=== PATIENT | female | born 1950 | race Two or more races ===

== ENCOUNTER 2020-12-14 00:37 | Inpatient (IN) | payer OTHER ==
[2020-12-14] VITALS (60 sets, daily range): BP systolic 98–157; BP diastolic 36–83
[~2020-12-14] VITALS: Ht 160 cm; Wt 68.0 kg
[2020-12-14] MEDS ORDERED: AMIODARONE HCL (50 MG/ ML) 3 ML VIAL IV ONE ×2 (01:04→02:17)
[2020-12-14] MEDS ORDERED: LORazepam 2MG/ML-1ML VIAL ONE (01:07)
[2020-12-14] MEDS ORDERED: ATROPINE SULFATE 1 MG/1 ML VIAL ONE (01:09)
[2020-12-14] MEDS ORDERED: GLUCAGON HYDROCHLORIDE (RDNA) 1 MG VIAL ONE (01:14)
[2020-12-14 01:17] LABS: Basophils # (auto) 0.1 10 ^3/uL (0-0.2); Basophils % (auto) 0.6 % (0.0-2.0); Eosinophils # (auto) 0.1 10 ^3/uL (0-0.8); Hematocrit 35.7 % (36.0-46.0); Hemoglobin 11.7 g/dL (12.2-16.2); Mean Corpuscular Hemoglobin 26.2 pg (28.0-32.0); Mean Corpuscular Hgb Conc. 32.7 g/dL (32.0-36.0); Mean Corpuscular Volume 80.1 fL (80.0-100.0); Monocytes # (auto) 0.8 10 ^3/uL (0-1.3); Monocytes % (auto) 6.8 % (0.0-12.0); Neutrophils % (auto) 83.6 % (37.0-80.0); Nucleated Red Blood Cells % 0.1 %; Red Blood Cells 4.46 10^6/uL (4.0-5.20); Red Cell Distribution Width 15.4 % (11.8-14.3)
[2020-12-14 01:35] LABS: Alanine Aminotransferase 33 U/L (13-56); Albumin 3.4 g/dL (3.4-5.0); Anion Gap 11 (5-15); Aspartate Aminotransferase 13 U/L (15-37); BUN/Creatinine Ratio 22.9; Blood Urea Nitrogen 22 mg/dL (7-18); Calcium 8.3 mg/dL (8.5-10.1); Carbon Dioxide 22 mmol/L (21-32); Chloride 103 mmol/L (98-107); GFR African American 74 mL/min; GFR Non-African American 61 mL/min; Glucose 212 mg/dL (74-106); Potassium 3.7 mmol/L (3.5-5.1); Sodium 136 mmol/L (136-145)
[2020-12-14 01:36] LABS: INR 1.08 (0.9-1.15); Partial Thromboplastin Time 27.2 sec (23.0-31.2)
[2020-12-14 01:40] LABS: Alkaline Phosphatase 64 U/L (45-117); Bilirubin, Total 0.7 mg/dL (0.2-1.0); Total Protein 6.9 g/dL (6.4-8.2)
[2020-12-14] MEDS ORDERED: METF-370 PO (01:58)
[2020-12-14] MEDS ORDERED: AMIO200T4 PO (02:10)
[2020-12-14] MEDS ORDERED: CLOP75TA70 PO (02:10)
[2020-12-14] MEDS ORDERED: PANT1POW (02:10)
[2020-12-14] MEDS ORDERED: POTA8TAB2 (02:10)
[2020-12-14] MEDS ORDERED: APIX2.5T PO (02:10)
[2020-12-14] MEDS ORDERED: PRAV20TA3 (02:10)
[2020-12-14] MEDS ORDERED: ALPR0.255 PO (02:10)
[2020-12-14] MEDS ORDERED: ASPI-325 PO (02:10)
[2020-12-14] MEDS ORDERED: TRAZ50TA2 PO (02:10)
[2020-12-14] MEDS ORDERED: FURO40TA4 PO (02:10)
[2020-12-14] MEDS ORDERED: ATROPINE SULF 1 MG/10ml SYR IV ONE (02:15)
[2020-12-14] MEDS ORDERED: LORazepam 2MG/ML-1ML VIAL IV ONE ×3 (02:15→07:00)
[2020-12-14] MEDS ORDERED: AMIODARONE HCL 150 MG in D5W 5% 100 ML IV ONE (02:30)
[2020-12-14 03:18] LABS: Urine Bacteria FEW /hpf (None Seen); Urine Blood Negative /uL (Negative); Urine Hyaline Cast MOD /lpf (0 - 2); Urine Mucus FEW (None Seen); Urine Specific Gravity 1.024 (1.001-1.035); Urine WBC 1 /hpf (0 - 5)
[2020-12-14] MEDS ORDERED: MET25T PO (03:48)
[2020-12-14] MEDS ORDERED: METOPROLOL TARTRATE 1MG/1ML-5ML VIAL IV ONE ×5 (05:28→05:38)
[2020-12-14] MEDS ORDERED: DEXTROSE (50%) 50ML SYRG IV PRN ×2 (05:30→05:45)
[2020-12-14] MEDS ORDERED: MORPHINE SULFATE INJECTION 2 MG/ML SYRG IV PRN (05:30)
[2020-12-14] MEDS ORDERED: NITROGLYCERIN 0.4 MG SL TAB SL PRN (05:30)
[2020-12-14] MEDS ORDERED: ONDANSETRON HCL 4 MG/2 ML VIAL IV PRN (05:30)
[2020-12-14] MEDS ORDERED: hydrALAZINE HCL 20 MG/ML VL IV PRN (05:30)
[2020-12-14] MEDS ORDERED: ACETAMINOPHEN 325 MG TAB PO PRN (05:30)
[2020-12-14] MEDS ORDERED: DOCUSATE SOD 100 MG CAP PO PRN (05:30)
[2020-12-14] MEDS ORDERED: AMIODARONE 450mg/250ml AE 250 ML IV ONE (05:37)
[2020-12-14] MEDS: DOPamine 1600MCG/ML D5W 250 ML IV SCH (06:00)
[2020-12-14] MEDS ORDERED: LIDOCAINE 4MG/ML IV SOLN 500 ML IV ONE (06:14)
[2020-12-14] MEDS ORDERED: LIDOCAINE 4MG/ML IV SOLN 500 ML IV SCH (06:15)
[2020-12-14] MEDS: InsuLIN REG 1unit/0.01ml Soln (100units/ml) SC SCH ×4 (06:42→22:00)
[2020-12-14] MEDS: ACCU-CHEK COMFORT CURVE STRIP VI SCH ×4 (06:43→22:07)
[2020-12-14] MEDS: SODIUM CHLOR 0.9% PF (SALINE LOCK) 10ML VIAL/SYR IV SCH ×3 (06:43→22:07)
[2020-12-14] MEDS ORDERED: InsuLIN REG 1unit/0.01ml Soln (100units/ml) SC SCH ×2 (07:00→22:00)
[2020-12-14] MEDS ORDERED: ACCU-CHEK COMFORT CURVE STRIP VI SCH (07:00)
[2020-12-14] MEDS ORDERED: IODIXANOL 320MG/ML 100ML BTL IV ONE (07:55)
[2020-12-14] MEDS ORDERED: LIDOCAINE 2%HCL (LOCAL ANESTH.) INJ 20ML MDV ONE (07:55)
[2020-12-14] MEDS ORDERED: ATROPINE SULF 1 MG/10ml SYR ONE (08:02)
[2020-12-14] MEDS ORDERED: fentaNYL CITRATE 100 MCG/2 ML VL ONE (08:02)
[2020-12-14] MEDS ORDERED: MIDAZOLAM HCL 2MG/2ML 2ml VIAL (1mg/ml) ONE (08:03)
[2020-12-14 08:08] LABS: Basophils # (auto) 0 10 ^3/uL (0-0.2); Basophils % (auto) 0.3 % (0.0-2.0); Eosinophils # (auto) 0 10 ^3/uL (0-0.8); Eosinophils % (auto) 0.1 % (0.0-7.0); Mean Corpuscular Hemoglobin 26.8 pg (28.0-32.0); Nucleated Red Blood Cells % 0.1 %
[2020-12-14 08:10] LABS: Hematocrit 36.7 % (36.0-46.0); Hemoglobin 12.1 g/dL (12.2-16.2); Lymphocytes # (auto) 0.8 10 ^3/uL (0.4-5.4); Lymphocytes % (auto) 7.6 % (10.0-50.0); Mean Corpuscular Volume 81.3 fL (80.0-100.0); Monocytes # (auto) 0.8 10 ^3/uL (0-1.3); Neutrophils # (auto) 9.2 10 ^3/uL (1.6-8.6); Red Blood Cells 4.51 10^6/uL (4.0-5.20); Red Cell Distribution Width 15.4 % (11.8-14.3); White Blood Cell 10.8 10^3/uL (4.4-10.8)
[2020-12-14 08:34] LABS: Potassium 3.8 mmol/L (3.5-5.1)
[2020-12-14 08:48] LABS: Albumin 3.4 g/dL (3.4-5.0); BUN/Creatinine Ratio 22.8; Bilirubin, Total 1.1 mg/dL (0.2-1.0); Calcium 8.8 mg/dL (8.5-10.1); Magnesium 2.2 mg/dL (1.6-2.6); Total Protein 7.3 g/dL (6.4-8.2)
[2020-12-14] MEDS: AMIODARONE HCL 200 MG TAB PO SCH (09:54)
[2020-12-14] MEDS: ZINC SULFATE 220mg CAP or TAB PO SCH (09:54)
[2020-12-14] MEDS: ASPirin 81 mg TAB PO SCH (09:54)
[2020-12-14] MEDS: MULTIPLE VITAMIN TAB PO SCH (09:55)
[2020-12-14] MEDS: FUROSEMIDE 20 MG/2 ML VIAL IV SCH (09:55)
[2020-12-14] MEDS: ASCORBIC ACID 500 MG TAB PO SCH ×2 (09:55→22:07)
[2020-12-14] MEDS: ENOXAPARIN SOD 40 MG/0.4 ML SYRINGE SC SCH (09:55)
[2020-12-14] MEDS: FAMOTIDINE (10MG/ML) 2ML VL IV SCH ×2 (09:56→22:07)
[2020-12-14] MEDS ORDERED: IOHEXOL 350 MG/ML 100ML IJ ONE (10:58)
[2020-12-14] MEDS ORDERED: SODIUM CHL 0.9% 0 ML ONE (11:27)
[2020-12-14] MEDS ORDERED: ANGIOMAX 250 MG VIAL IV ONE (11:27)
[2020-12-14] MEDS: ATORVASTATIN 20 MG TAB PO SCH (22:07)
[2020-12-15] VITALS (46 sets, daily range): BP systolic 123–156; BP diastolic 62–105
[2020-12-15] MEDS: MORPHINE SULFATE 4 MG/ML SYR/VIAL IV PRN ×2 (02:02→20:55)
[2020-12-15 04:43] LABS: Albumin 2.9 g/dL (3.4-5.0); Calcium 8.4 mg/dL (8.5-10.1)
[2020-12-15 04:47] LABS: BUN/Creatinine Ratio 23.9; Total Protein 5.9 g/dL (6.4-8.2)
[2020-12-15] MEDS: SODIUM CHLOR 0.9% PF (SALINE LOCK) 10ML VIAL/SYR IV SCH ×3 (06:00→21:38)
[2020-12-15] MEDS ORDERED: LIDOCAINE 4MG/ML IV SOLN 500 ML IV SCH (06:15)
[2020-12-15] MEDS: ACCU-CHEK COMFORT CURVE STRIP VI SCH ×4 (06:56→21:39)
[2020-12-15] MEDS: InsuLIN REG 1unit/0.01ml Soln (100units/ml) SC SCH ×4 (06:56→21:39)
[2020-12-15] MEDS ORDERED: POTASSIUM CHLORIDE 60 MEQ, LIDOCAINE 1% (LOCAL ANESTH.) 6 ML in SODIUM CHL 0.9% 500 ML IV ONE (08:45)
[2020-12-15] MEDS: DOPamine 1600MCG/ML D5W 250 ML IV SCH ×2 (09:00→20:53)
[2020-12-15 09:16] LABS: Basophils # (auto) 0.1 10 ^3/uL (0-0.2); Basophils % (auto) 0.8 % (0.0-2.0); Eosinophils # (auto) 0.3 10 ^3/uL (0-0.8); Eosinophils % (auto) 2.8 % (0.0-7.0); Hematocrit 33.7 % (36.0-46.0); Hemoglobin 11.2 g/dL (12.2-16.2); Lymphocytes % (auto) 8.6 % (10.0-50.0); Mean Corpuscular Hemoglobin 26.4 pg (28.0-32.0); Mean Corpuscular Hgb Conc. 33.3 g/dL (32.0-36.0); Mean Corpuscular Volume 79.1 fL (80.0-100.0); Monocytes # (auto) 1.1 10 ^3/uL (0-1.3); Monocytes % (auto) 9.9 % (0.0-12.0); Neutrophils # (auto) 8.7 10 ^3/uL (1.6-8.6); Neutrophils % (auto) 77.9 % (37.0-80.0); Nucleated Red Blood Cells % 0.3 %; Red Blood Cells 4.26 10^6/uL (4.0-5.20); Red Cell Distribution Width 15.1 % (11.8-14.3); White Blood Cell 11.1 10^3/uL (4.4-10.8)
[2020-12-15] MEDS: ASPirin 81 mg TAB PO SCH (09:48)
[2020-12-15] MEDS: ASCORBIC ACID 500 MG TAB PO SCH ×2 (09:48→21:38)
[2020-12-15] MEDS: ENOXAPARIN SOD 40 MG/0.4 ML SYRINGE SC SCH (09:48)
[2020-12-15] MEDS: ZINC SULFATE 220mg CAP or TAB PO SCH (09:48)
[2020-12-15] MEDS: FUROSEMIDE 20 MG/2 ML VIAL IV SCH (09:48)
[2020-12-15] MEDS: FAMOTIDINE (10MG/ML) 2ML VL IV SCH ×2 (09:49→21:38)
[2020-12-15] MEDS: AMIODARONE HCL 200 MG TAB PO SCH (09:49)
[2020-12-15] MEDS: MULTIPLE VITAMIN TAB PO SCH (09:49)
[2020-12-15] MEDS: CLOPIDOGREL BISULFATE 75 MG TAB PO SCH (09:49)
[2020-12-15] MEDS: ATORVASTATIN 20 MG TAB PO SCH (21:38)
[2020-12-15] MEDS ORDERED: PHENYLEPHRINE IV 500 ML IV ONE (23:25)
[2020-12-16] VITALS (32 sets, daily range): BP systolic 108–162; BP diastolic 69–105
[2020-12-16] MEDS: LORazepam 2MG/ML-1ML VIAL IV PRN ×2 (01:43→14:26)
[2020-12-16 04:46] LABS: Basophils # (auto) 0.1 10 ^3/uL (0-0.2); Basophils % (auto) 0.9 % (0.0-2.0); Eosinophils # (auto) 0.6 10 ^3/uL (0-0.8); Eosinophils % (auto) 5.1 % (0.0-7.0); Hematocrit 36.3 % (36.0-46.0); Hemoglobin 12.2 g/dL (12.2-16.2); Lymphocytes # (auto) 1.3 10 ^3/uL (0.4-5.4); Lymphocytes % (auto) 11.3 % (10.0-50.0); Mean Corpuscular Hemoglobin 26.9 pg (28.0-32.0); Mean Corpuscular Hgb Conc. 33.7 g/dL (32.0-36.0); Mean Corpuscular Volume 79.7 fL (80.0-100.0); Monocytes # (auto) 1.1 10 ^3/uL (0-1.3); Monocytes % (auto) 9.7 % (0.0-12.0); Neutrophils # (auto) 8.1 10 ^3/uL (1.6-8.6); Nucleated Red Blood Cells % 0.1 %; Red Blood Cells 4.55 10^6/uL (4.0-5.20); Red Cell Distribution Width 15.5 % (11.8-14.3); White Blood Cell 11.1 10^3/uL (4.4-10.8)
[2020-12-16 05:00] LABS: BUN/Creatinine Ratio 21.7; Calcium 8.5 mg/dL (8.5-10.1); Potassium 3.2 mmol/L (3.5-5.1)
[2020-12-16] MEDS: SODIUM CHLOR 0.9% PF (SALINE LOCK) 10ML VIAL/SYR IV SCH ×3 (05:28→22:47)
[2020-12-16] MEDS ORDERED: POTASSIUM CHLORIDE 40 MEQ, LIDOCAINE 1% (LOCAL ANESTH.) 4 ML in SODIUM CHL 0.9% 250 ML IV ONE ×2 (05:30→17:45)
[2020-12-16] MEDS: ACCU-CHEK COMFORT CURVE STRIP VI SCH ×4 (06:41→22:48)
[2020-12-16] MEDS: InsuLIN REG 1unit/0.01ml Soln (100units/ml) SC SCH ×4 (06:41→22:49)
[2020-12-16] MEDS ORDERED: POTASSIUM CHL 20 Meq TABLET PO ONE (07:30)
[2020-12-16] MEDS: MAGNESIUM SULFATE 1GM/100ML 100 ML IV SCH ×2 (08:08→11:34)
[2020-12-16] MEDS: VERAPAMIL 2.5MG/ML INJ 2ML VIAL IV PRN ×3 (09:35→12:19)
[2020-12-16] MEDS: ZINC SULFATE 220mg CAP or TAB PO SCH (09:38)
[2020-12-16] MEDS: FUROSEMIDE 20 MG/2 ML VIAL IV SCH (09:38)
[2020-12-16] MEDS: ENOXAPARIN SOD 40 MG/0.4 ML SYRINGE SC SCH (09:38)
[2020-12-16] MEDS: ASCORBIC ACID 500 MG TAB PO SCH ×2 (09:38→22:00)
[2020-12-16] MEDS: CLOPIDOGREL BISULFATE 75 MG TAB PO SCH (09:38)
[2020-12-16] MEDS: MULTIPLE VITAMIN TAB PO SCH (09:38)
[2020-12-16] MEDS: ASPirin 81 mg TAB PO SCH (09:38)
[2020-12-16] MEDS: FAMOTIDINE (10MG/ML) 2ML VL IV SCH ×2 (09:39→22:47)
[2020-12-16] MEDS ORDERED: ARTIFICIAL TEARS 15ml EACHEYE PRN (14:30)
[2020-12-16] MEDS ORDERED: LIDOCAINE 2%HCL (LOCAL ANESTH.) INJ 20ML MDV ONE ×2 (15:58→17:13)
[2020-12-16] MEDS: DOPamine 1600MCG/ML D5W 250 ML IV SCH (16:48)
[2020-12-16] MEDS ORDERED: fentaNYL CITRATE 100 MCG/2 ML VL ONE (17:12)
[2020-12-16] MEDS ORDERED: VANCOMYCIN 1GM/250ML 250 ML IV ONE (17:13)
[2020-12-16] MEDS ORDERED: VANCOMYCIN HCL 1000 MG VL ONE (17:13)
[2020-12-16] MEDS ORDERED: FUROSEMIDE 20 MG/2 ML VIAL ONE (17:55)
[2020-12-16] MEDS ORDERED: NALOXONE HCL 0.4 MG/ML VIAL ONE (17:59)
[2020-12-16] MEDS ORDERED: MIDAZOLAM HCL 2MG/2ML 2ml VIAL (1mg/ml) ONE (18:07)
[2020-12-16] MEDS ORDERED: DIGOXIN (250MCG/ML) 2 ML AMPULE IV ONE (18:45)
[2020-12-16] MEDS ORDERED: LORazepam 2MG/ML-1ML VIAL ONE (18:59)
[2020-12-16] MEDS ORDERED: LORazepam 2MG/ML-1ML VIAL IM ONE (19:00)
[2020-12-16] MEDS: ATORVASTATIN 20 MG TAB PO SCH (22:00)
[2020-12-16] MEDS: VANCOMYCIN 1GM/250ML 250 ML IV SCH (22:47)
[2020-12-17] VITALS (28 sets, daily range): BP systolic 118–150; BP diastolic 67–97
[2020-12-17] MEDS: LORazepam 2MG/ML-1ML VIAL IV PRN ×2 (04:19→18:27)
[2020-12-17] MEDS: ACCU-CHEK COMFORT CURVE STRIP VI SCH ×4 (06:31→22:00)
[2020-12-17] MEDS: SODIUM CHLOR 0.9% PF (SALINE LOCK) 10ML VIAL/SYR IV SCH ×3 (06:31→22:00)
[2020-12-17] MEDS: InsuLIN REG 1unit/0.01ml Soln (100units/ml) SC SCH ×4 (06:32→22:00)
[2020-12-17] MEDS ORDERED: DIGOXIN (250MCG/ML) 2 ML AMPULE IV ONE (09:15)
[2020-12-17 09:38] LABS: Mean Corpuscular Hgb Conc. 33.5 g/dL (32.0-36.0); Nucleated Red Blood Cells % 0.1 %
[2020-12-17 09:40] LABS: Basophils # (auto) 0 10 ^3/uL (0-0.2); Basophils % (auto) 0.5 % (0.0-2.0); Eosinophils # (auto) 0.3 10 ^3/uL (0-0.8); Eosinophils % (auto) 3.9 % (0.0-7.0); Hematocrit 36.7 % (36.0-46.0); Hemoglobin 12.3 g/dL (12.2-16.2); Lymphocytes # (auto) 1.1 10 ^3/uL (0.4-5.4); Lymphocytes % (auto) 12.4 % (10.0-50.0); Mean Corpuscular Hemoglobin 26.5 pg (28.0-32.0); Mean Corpuscular Volume 79.3 fL (80.0-100.0); Monocytes # (auto) 0.8 10 ^3/uL (0-1.3); Monocytes % (auto) 9.5 % (0.0-12.0); Neutrophils # (auto) 6.5 10 ^3/uL (1.6-8.6); Neutrophils % (auto) 73.7 % (37.0-80.0); Red Blood Cells 4.63 10^6/uL (4.0-5.20); Red Cell Distribution Width 15.2 % (11.8-14.3); White Blood Cell 8.8 10^3/uL (4.4-10.8)
[2020-12-17] MEDS: FUROSEMIDE 20 MG/2 ML VIAL IV SCH (09:42)
[2020-12-17] MEDS: FAMOTIDINE (10MG/ML) 2ML VL IV SCH ×2 (09:42→22:00)
[2020-12-17] MEDS: ENOXAPARIN SOD 40 MG/0.4 ML SYRINGE SC SCH (09:43)
[2020-12-17] MEDS: ASPirin 81 mg TAB PO SCH (09:43)
[2020-12-17] MEDS: ZINC SULFATE 220mg CAP or TAB PO SCH (09:43)
[2020-12-17] MEDS: CLOPIDOGREL BISULFATE 75 MG TAB PO SCH (09:43)
[2020-12-17] MEDS: ASCORBIC ACID 500 MG TAB PO SCH ×2 (09:43→22:00)
[2020-12-17] MEDS: MULTIPLE VITAMIN TAB PO SCH (09:43)
[2020-12-17] MEDS: VANCOMYCIN 1GM/250ML 250 ML IV SCH (09:44)
[2020-12-17 10:04] LABS: Calcium 8.5 mg/dL (8.5-10.1); Potassium 3.5 mmol/L (3.5-5.1)
[2020-12-17 10:07] LABS: Magnesium 2.3 mg/dL (1.6-2.6)
[2020-12-17] MEDS: MORPHINE SULFATE 4 MG/ML SYR/VIAL IV PRN ×2 (11:00→23:00)
[2020-12-17] MEDS: HYDROcodone-ACET 5/325MG TAB PO PRN (20:45)
[2020-12-17] MEDS ORDERED: METOPROLOL TARTRATE 25 MG TAB PO SCH (22:00)
[2020-12-17] MEDS: ATORVASTATIN 20 MG TAB PO SCH (22:00)
[2020-12-18] MEDS: LORazepam 2MG/ML-1ML VIAL IV PRN ×3 (00:15→21:25)
[2020-12-18 05:00] VITALS: BP 122/70
[2020-12-18] MEDS: SODIUM CHLOR 0.9% PF (SALINE LOCK) 10ML VIAL/SYR IV SCH ×3 (06:00→22:00)
[2020-12-18] MEDS: InsuLIN REG 1unit/0.01ml Soln (100units/ml) SC SCH ×4 (06:08→22:00)
[2020-12-18] MEDS: ACCU-CHEK COMFORT CURVE STRIP VI SCH ×4 (06:20→22:00)
[2020-12-18 08:30] VITALS: BP 137/87
[2020-12-18] MEDS: ASCORBIC ACID 500 MG TAB PO SCH ×2 (11:12→22:00)
[2020-12-18] MEDS: ZINC SULFATE 220mg CAP or TAB PO SCH (11:12)
[2020-12-18] MEDS: FAMOTIDINE (10MG/ML) 2ML VL IV SCH ×3 (11:12→23:02)
[2020-12-18] MEDS: FUROSEMIDE 20 MG/2 ML VIAL IV SCH (11:12)
[2020-12-18] MEDS: MULTIPLE VITAMIN TAB PO SCH (11:12)
[2020-12-18] MEDS: ASPirin 81 mg TAB PO SCH (11:12)
[2020-12-18] MEDS: CLOPIDOGREL BISULFATE 75 MG TAB PO SCH (11:12)
[2020-12-18] MEDS: METOPROLOL SUCCINATE XL 50 MG TAB PO SCH (11:17)
[2020-12-18] MEDS: HYDROcodone-ACET 5/325MG TAB PO PRN (12:12)
[2020-12-18 12:30] VITALS: BP 158/93
[2020-12-18 17:00] VITALS: BP 151/88
[2020-12-18] MEDS: MORPHINE SULFATE 4 MG/ML SYR/VIAL IV PRN (17:16)
[2020-12-18] MEDS: ATORVASTATIN 20 MG TAB PO SCH (22:00)
[2020-12-19] MEDS ORDERED: HALOPERIDOL LACTATE 5 MG/ML INJ VIAL IM ONE (01:15)
[2020-12-19] MEDS ORDERED: dilTIAZem 25 MG/5 ML VIAL IV ONE (05:30)
[2020-12-19] MEDS: LORazepam 2MG/ML-1ML VIAL IV PRN (06:00)
[2020-12-19] MEDS: SODIUM CHLOR 0.9% PF (SALINE LOCK) 10ML VIAL/SYR IV SCH ×3 (06:00→23:29)
[2020-12-19] MEDS: ACCU-CHEK COMFORT CURVE STRIP VI SCH ×4 (07:00→22:00)
[2020-12-19] MEDS: InsuLIN REG 1unit/0.01ml Soln (100units/ml) SC SCH ×4 (07:00→22:00)
[2020-12-19 09:00] VITALS: BP 142/78
[2020-12-19] MEDS: FUROSEMIDE 20 MG/2 ML VIAL IV SCH (10:23)
[2020-12-19] MEDS: CLOPIDOGREL BISULFATE 75 MG TAB PO SCH (10:24)
[2020-12-19] MEDS: MULTIPLE VITAMIN TAB PO SCH (10:24)
[2020-12-19] MEDS: ZINC SULFATE 220mg CAP or TAB PO SCH (10:24)
[2020-12-19] MEDS: FAMOTIDINE (10MG/ML) 2ML VL IV SCH ×2 (10:24→23:27)
[2020-12-19] MEDS: ASPirin 81 mg TAB PO SCH (10:24)
[2020-12-19] MEDS: METOPROLOL SUCCINATE XL 50 MG TAB PO SCH (10:25)
[2020-12-19] MEDS: ASCORBIC ACID 500 MG TAB PO SCH (10:25)
[2020-12-19 10:35] LABS: Eosinophils # (auto) 0 10 ^3/uL (0-0.8); Hematocrit 33.3 % (36.0-46.0); Hemoglobin 10.9 g/dL (12.2-16.2); Mean Corpuscular Volume 79.3 fL (80.0-100.0); Nucleated Red Blood Cells % 0.1 %
[2020-12-19 10:36] LABS: Basophils # (auto) 0.1 10 ^3/uL (0-0.2); Basophils % (auto) 0.6 % (0.0-2.0); Lymphocytes # (auto) 0.5 10 ^3/uL (0.4-5.4); Lymphocytes % (auto) 4.1 % (10.0-50.0); Mean Corpuscular Hemoglobin 26.1 pg (28.0-32.0); Mean Corpuscular Hgb Conc. 32.9 g/dL (32.0-36.0); Monocytes % (auto) 7.4 % (0.0-12.0); Neutrophils # (auto) 11.8 10 ^3/uL (1.6-8.6); Neutrophils % (auto) 87.9 % (37.0-80.0); Red Cell Distribution Width 14.8 % (11.8-14.3); White Blood Cell 13.4 10^3/uL (4.4-10.8)
[2020-12-19] MEDS ORDERED: HALOPERIDOL LACTATE 5 MG/ML INJ VIAL IM PRN (11:45)
[2020-12-19 13:00] VITALS: BP 131/89
[2020-12-19 17:00] VITALS: BP 139/78
[2020-12-19] MEDS: MORPHINE SULFATE INJECTION 2 MG/ML SYRG IV PRN (19:56)
[2020-12-19 22:00] VITALS: BP 159/109
[2020-12-19] MEDS: MIRTAZAPINE 30 MG TAB PO SCH (23:27)
[2020-12-19] MEDS: ATORVASTATIN 20 MG TAB PO SCH (23:27)
[2020-12-19 23:46] LABS: Folate (Folic Acid) 21.65 ng/mL (5.38-24)
[2020-12-20] MEDS: MORPHINE SULFATE INJECTION 2 MG/ML SYRG IV PRN (01:47)
[2020-12-20] MEDS ORDERED: dilTIAZem 25 MG/5 ML VIAL IV ONE (02:15)
[2020-12-20 05:00] VITALS: BP 147/97
[2020-12-20] MEDS: InsuLIN REG 1unit/0.01ml Soln (100units/ml) SC SCH ×4 (06:59→21:36)
[2020-12-20] MEDS: ACCU-CHEK COMFORT CURVE STRIP VI SCH ×4 (06:59→21:36)
[2020-12-20] MEDS: SODIUM CHLOR 0.9% PF (SALINE LOCK) 10ML VIAL/SYR IV SCH ×3 (07:01→21:35)
[2020-12-20 09:00] VITALS: BP 130/73
[2020-12-20] MEDS: CLOPIDOGREL BISULFATE 75 MG TAB PO SCH (10:24)
[2020-12-20] MEDS: FUROSEMIDE 20 MG/2 ML VIAL IV SCH (10:24)
[2020-12-20] MEDS: AMIODARONE HCL 200 MG TAB PO SCH ×2 (10:24→21:36)
[2020-12-20] MEDS: ASPirin 81 mg TAB PO SCH (10:24)
[2020-12-20] MEDS: METOPROLOL SUCCINATE XL 50 MG TAB PO SCH (10:25)
[2020-12-20] MEDS: FAMOTIDINE (10MG/ML) 2ML VL IV SCH ×2 (10:25→21:35)
[2020-12-20 13:00] VITALS: BP 91/50
[2020-12-20 17:00] VITALS: BP 119/65
[2020-12-20] MEDS ORDERED: diphenhdrAMINE HCL 25 MG CAP PO ONE (17:45)
[2020-12-20] MEDS ORDERED: CEPHALEXIN 250 MG CAP PO SCH (18:00)
[2020-12-20] MEDS ORDERED: levoFLOXacin 500 MG TAB PO SCH (18:00)
[2020-12-20] MEDS: levoFLOXacin 500 MG TAB PO SCH (21:35)
[2020-12-20] MEDS: ATORVASTATIN 20 MG TAB PO SCH (21:36)
[2020-12-20] MEDS: MIRTAZAPINE 30 MG TAB PO SCH (21:36)
[2020-12-20 22:12] VITALS: BP 125/85
[2020-12-21 05:02] VITALS: BP 109/63
[2020-12-21] MEDS: SODIUM CHLOR 0.9% PF (SALINE LOCK) 10ML VIAL/SYR IV SCH ×3 (06:30→21:44)
[2020-12-21] MEDS: ACCU-CHEK COMFORT CURVE STRIP VI SCH ×4 (06:30→21:45)
[2020-12-21] MEDS: InsuLIN REG 1unit/0.01ml Soln (100units/ml) SC SCH ×4 (06:31→21:46)
[2020-12-21 08:23] VITALS: BP 116/62
[2020-12-21] MEDS: FUROSEMIDE 20 MG/2 ML VIAL IV SCH (09:56)
[2020-12-21] MEDS: FAMOTIDINE (10MG/ML) 2ML VL IV SCH ×2 (09:56→21:44)
[2020-12-21] MEDS: ASPirin 81 mg TAB PO SCH (09:57)
[2020-12-21] MEDS: METOPROLOL SUCCINATE XL 50 MG TAB PO SCH (09:58)
[2020-12-21] MEDS: CLOPIDOGREL BISULFATE 75 MG TAB PO SCH (09:58)
[2020-12-21] MEDS: AMIODARONE HCL 200 MG TAB PO SCH ×2 (09:58→21:45)
[2020-12-21] MEDS ORDERED: levoFLOXacin 500 MG TAB PO SCH (10:00)
[2020-12-21 12:59] VITALS: BP 106/60
[2020-12-21] MEDS: levoFLOXacin 500 MG TAB PO SCH (18:22)
[2020-12-21 21:03] VITALS: BP 108/68
[2020-12-21] MEDS: ATORVASTATIN 20 MG TAB PO SCH (21:45)
[2020-12-21] MEDS: MIRTAZAPINE 30 MG TAB PO PRN (21:48)
[2020-12-22 05:13] VITALS: BP 141/74
[2020-12-22] MEDS: ACCU-CHEK COMFORT CURVE STRIP VI SCH ×4 (06:15→21:44)
[2020-12-22] MEDS: SODIUM CHLOR 0.9% PF (SALINE LOCK) 10ML VIAL/SYR IV SCH ×3 (06:15→21:44)
[2020-12-22] MEDS: InsuLIN REG 1unit/0.01ml Soln (100units/ml) SC SCH ×4 (06:16→21:45)
[2020-12-22 09:00] VITALS: BP 136/60
[2020-12-22] MEDS: FUROSEMIDE 20 MG/2 ML VIAL IV SCH (10:09)
[2020-12-22] MEDS: CLOPIDOGREL BISULFATE 75 MG TAB PO SCH (10:10)
[2020-12-22] MEDS: AMIODARONE HCL 200 MG TAB PO SCH ×2 (10:10→21:44)
[2020-12-22] MEDS: FAMOTIDINE (10MG/ML) 2ML VL IV SCH ×2 (10:10→21:44)
[2020-12-22] MEDS: METOPROLOL SUCCINATE XL 50 MG TAB PO SCH (10:11)
[2020-12-22] MEDS: ASPirin 81 mg TAB PO SCH (10:21)
[2020-12-22 13:00] VITALS: BP 130/65
[2020-12-22 17:00] VITALS: BP 100/75
[2020-12-22] MEDS: levoFLOXacin 500 MG TAB PO SCH (17:19)
[2020-12-22] MEDS: MIRTAZAPINE 30 MG TAB PO PRN (21:44)
[2020-12-22] MEDS: ATORVASTATIN 20 MG TAB PO SCH (21:44)
[2020-12-22 22:00] VITALS: BP 106/56
[2020-12-23 05:00] VITALS: BP 119/81
[2020-12-23] MEDS: SODIUM CHLOR 0.9% PF (SALINE LOCK) 10ML VIAL/SYR IV SCH ×2 (06:08→14:00)
[2020-12-23] MEDS: ACCU-CHEK COMFORT CURVE STRIP VI SCH ×2 (06:09→11:30)
[2020-12-23] MEDS: InsuLIN REG 1unit/0.01ml Soln (100units/ml) SC SCH ×2 (06:16→11:30)
[2020-12-23 08:00] VITALS: BP 109/67
[2020-12-23] MEDS: FAMOTIDINE (10MG/ML) 2ML VL IV SCH (09:51)
[2020-12-23] MEDS: ASPirin 81 mg TAB PO SCH (09:52)
[2020-12-23] MEDS: CLOPIDOGREL BISULFATE 75 MG TAB PO SCH (09:52)
[2020-12-23] MEDS: AMIODARONE HCL 200 MG TAB PO SCH (09:52)
[2020-12-23] MEDS: METOPROLOL SUCCINATE XL 50 MG TAB PO SCH (09:53)
[2020-12-23] MEDS: FUROSEMIDE 20 MG/2 ML VIAL IV SCH (12:00)
[2020-12-23 12:35] VITALS: BP 133/69
[2020-12-23 12:39] VITALS: BP 109/67
== END 2020-12-23 16:25 | disposition home or self-care (01) | DRG 228 ==
LOC: ER 00:37 → TELE 00:38 → ICU WEST 06:15 → TELE-WESTW 12-17 17:19
PROVIDERS: ADMIT Nurse Practitioner Family; ATTEND Family Medicine
PROC: B2111ZZ Fluoroscopy of Multiple Coronary Arteries using Low Osmolar Contrast (ICD-10-PCS; principal; 2020-12-14)
PROC: B2151ZZ Fluoroscopy of Left Heart using Low Osmolar Contrast (ICD-10-PCS; 2020-12-14)
PROC: 4A023N7 Measurement of Cardiac Sampling and Pressure, Left Heart, Percutaneous Approach (ICD-10-PCS; 2020-12-14)
PROC: 5A1223Z Performance of Cardiac Pacing, Continuous (ICD-10-PCS; 2020-12-14)
PROC: 0JH606Z Insertion of Pacemaker, Dual Chamber into Chest Subcutaneous Tissue and Fascia, Open Approach (ICD-10-PCS; 2020-12-16)
PROC: 02HK3JZ Insertion of Pacemaker Lead into Right Ventricle, Percutaneous Approach (ICD-10-PCS; 2020-12-16)
PROC: 02H63JZ Insertion of Pacemaker Lead into Right Atrium, Percutaneous Approach (ICD-10-PCS; 2020-12-16)
PROC: 02PA3NZ Removal of Intracardiac Pacemaker from Heart, Percutaneous Approach (ICD-10-PCS; 2020-12-16)
DX: I49.5 Sick sinus syndrome (principal); I50.43 Acute on chronic combined systolic (congestive) and diastolic (congestive) heart failure; G93.41 Metabolic encephalopathy; I47.2 Ventricular tachycardia; I48.19 Other persistent atrial fibrillation; I11.0 Hypertensive heart disease with heart failure; I25.10 Atherosclerotic heart disease of native coronary artery without angina pectoris; F41.9 Anxiety disorder, unspecified; E11.65 Type 2 diabetes mellitus with hyperglycemia; D72.829 Elevated white blood cell count, unspecified; F17.200 Nicotine dependence, unspecified, uncomplicated; I49.9 Cardiac arrhythmia, unspecified; E87.6 Hypokalemia; Z20.822 Contact with and (suspected) exposure to COVID-19; Z79.02 Long term (current) use of antithrombotics/antiplatelets; Z79.82 Long term (current) use of aspirin; Z82.3 Family history of stroke; I25.2 Old myocardial infarction; Z82.49 Family history of ischemic heart disease and other diseases of the circulatory system; Z83.3 Family history of diabetes mellitus; Z86.011 Personal history of benign neoplasm of the brain; Z90.710 Acquired absence of both cervix and uterus; Z95.5 Presence of coronary angioplasty implant and graft; Z88.0 Allergy status to penicillin; Z88.2 Allergy status to sulfonamides
CPT/HCPCS: 33208; 36415; 51702; 70450; 71045; 80048; 80053; 81001; 82607; 82746; 82962; 83036; 83735; 83880; 84132; 84443; 84484; 85025; 85610; 85730; 87081; 87426; 93005; 93306; 93458; 95819; 96374; 96375; 96376; 97110; 97116; 97530; 99152; 99153; 99291; A4565; C1785; G0378; J0461; J1815; J2001; J2250; J2405; J3490; J7060; Q9967

== ENCOUNTER 2021-03-11 19:32 | Emergency (ER) | payer OTHER ==
[~2021-03-11] VITALS: Ht 160 cm; Wt 68.0 kg
[~2021-03-11 19:32] MED LIST: ALPR0.255 PO; AMIO200T4 PO; APIX2.5T PO; ASPI-325 PO; CLOP75TA70 PO; FURO40TA4 PO; MET25T PO; METF-370 PO; PANT1POW; POTA8TAB2; PRAV20TA3; TRAZ50TA2 PO
[2021-03-11 21:55] VITALS: BP 157/67
== END 2021-03-11 22:25 | disposition short-term general hospital (02) ==
LOC: EDBD 19:32 → EDUNIT# 19:32 → ER 19:36
DX: S01.81XA Laceration without foreign body of other part of head, initial encounter (principal); S05.12XA Contusion of eyeball and orbital tissues, left eye, initial encounter; G93.89 Other specified disorders of brain; F41.9 Anxiety disorder, unspecified; E11.9 Type 2 diabetes mellitus without complications; I10 Essential (primary) hypertension; Z95.0 Presence of cardiac pacemaker; Z79.899 Other long term (current) drug therapy; Z79.82 Long term (current) use of aspirin; Z88.0 Allergy status to penicillin; Z88.2 Allergy status to sulfonamides; W01.0XXA Fall on same level from slipping, tripping and stumbling without subsequent striking against object, initial encounter; Y93.89 Activity, other specified; Y92.89 Other specified places as the place of occurrence of the external cause; Y99.8 Other external cause status
CPT/HCPCS: 70450; 70486; 71045; 72125; 93005

== ENCOUNTER → 2023-01-06 | Outpatient (CLI) | payer OTHER ==
[~2023-01-06] MED LIST changes: +METOPROLOL SUCCINATE XL 50 MG TAB PO ONE
[2023-01-06 15:41] VITALS: BP 168/90
[2023-01-06 16:30] VITALS: BP 135/93
== END | disposition home or self-care (01) ==
LOC: Rad HDHVI 15:00
PROVIDERS: ATTEND Internal Medicine Cardiovascular Disease
DX: I11.9 Hypertensive heart disease without heart failure (principal); I47.1 Supraventricular tachycardia; R00.1 Bradycardia, unspecified; I48.0 Paroxysmal atrial fibrillation; Z95.0 Presence of cardiac pacemaker
CPT/HCPCS: 93306; G0463